=== PATIENT | male | born 1955 ===

== ENCOUNTER 2016-10-15 20:16 | Emergency (ER) | payer MEDICAID, OTHER ==
[2016-10-15 20:26] VITALS: PULSE 81; RESP 16; TEMP 97.9; O2SAT 100
[2016-10-15 21:32] LABS: BASO # 0.1 K/uL (0.0-0.2); BASO % 0.7 % (0.0-2.0); EOS # 0.2 K/uL (0.0-0.7); EOS % 2.1 % (0.0-4.0); HEMATOCRIT 42.6 % (35.0-51.0); LYMPH # 2.8 K/uL (1.0-4.3); LYMPH % 27.8 % (20.0-40.0); MEAN CELL VOLUME 93.8 fl (80.0-94.0); MEAN CORPUSCULAR HEMOGLOBIN 32.5 pg (27.0-31.0); MEAN CORPUSCULAR HGB CONC 34.6 g/dL (33.0-37.0); MEAN PLATELET VOLUME 8.9 fl (7.2-11.7); MONO # 0.8 K/uL (0.0-0.8); NEUT # 6.2 K/uL (1.8-7.0); NEUT % 61.4 % (50.0-75.0); NRBC % 0.1 % (0.0-0.0); RED CELL DISTRIBUTION WIDTH 12.4 % (11.5-14.5)
[2016-10-15 21:50] LABS: ALB/GLOB RATIO 1.4 (1.0-2.1); ALKALINE PHOSPHATASE 71 U/L (38-126); ALT/SGPT 30 U/L (21-72); AST/SGOT 24 U/L (17-59); BILIRUBIN,TOTAL 0.6 mg/dl (0.2-1.3); BLOOD UREA NITROGEN 15 mg/dl (9-20); CALCIUM 9.5 mg/dL (8.4-10.2); CARBON DIOXIDE 26 mmol/L (22-30); CHLORIDE 98 mmol/L (98-107); GFR AFRICAN-AMERICAN > 60; GLUCOSE,RANDOM 192 mg/dL (75-110); POTASSIUM 3.8 MMOL/L (3.6-5.0); SODIUM 138 mmol/l (132-148); TOTAL PROTEIN 7.7 G/DL (6.3-8.2)
[2016-10-15] MEDS ORDERED: Sodium Chloride 0.9% 1,000 ML IV STA (22:07)
[2016-10-15 22:16] LABS: RBC URINE 2 /hpf (0-3); WBC URINE 2 /hpf (0-5)
[2016-10-15 22:34] LABS: URINE COLOR YELLOW (YELLOW)
[2016-10-15 22:35] LABS: URINE BILIRUBIN NEGATIVE (NEGATIVE); URINE BLOOD NEGATIVE (NEGATIVE); URINE GLUCOSE (UA) NEGATIVE (Normal); URINE KETONE NEGATIVE (NEGATIVE); URINE LEUKOCYTE ESTERASE TRACE Leu/uL (Negative); URINE PROTEIN NEGATIVE (NEGATIVE); URINE UROBILINOGEN 0.2 mg/dL (0.2-1.0)
--- NOTE | 2016-10-15 22:47 | ED PDOC ---
HPI: General Adult Time Seen by Provider: 10/15/16 20:45 Chief Complaint (Nursing): Weakness/Neurological Deficit Chief Complaint (Provider): weakness Additional Complaint(s): 61yo M inED for eval of generalized weakness x 2 days states he is concerned about his BP and BS states that he is hasn['t been taking the normal Rx dosage of medication as Rx by [facility] primary in [place]. 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 negative for BARON, dizziness, fever, cough, SOB or CP/. Past Medical History Reviewed: Historical Data, Nursing Documentation, Vital Signs Vital Signs: Last Vital Signs Temp 97.9 F 10/15/16 20:23 Pulse 81 10/15/16 20:23 Resp 16 10/15/16 20:23 BP 176/88 H 10/15/16 20:23 Pulse Ox 100 10/15/16 20:23 - Medical History PMH: HTN - Family History Family History: States: No Known Family Hx - Home Medications Home Medications: Ambulatory Orders Medication Instructions Recorded Hydrochlorothiazide [Microzide] 12.5 mg PO DAILY 10/15/16 Losartan/Hydrochlorothiazide 1 tab PO DAILY 10/15/16 [Losartan-Hctz 50-12.5 mg Tab] Simvastatin [Simvastatin] 20 mg PO DAILY 10/15/16 metFORMIN [glucOPHAGE] 500 mg PO BID 10/15/16 - Allergies Allergies/Adverse Reactions: Allergies Allergy/AdvReac Type Severity Reaction Status Date / Time No Known Allergies Allergy Verified 10/15/16 20:22 Review of Systems ROS Statement: Except As Marked, All Systems Reviewed And Found Negative Constitutional: Positive for: Malaise Eyes: Negative for: Vision Change Physical Exam - Reviewed Nursing Documentation Reviewed: Yes Vital Signs Reviewed: Yes - Physical Exam Appears: Positive for: Well, Non-toxic, No Acute Distress Head Exam: Positive for: ATRAUMATIC, NORMAL INSPECTION, NORMOCEPHALIC Skin: Positive for: Normal Color, Warm, DRY Eye Exam: Positive for: EOMI, Normal appearance, PERRL Cardiovascular/Chest: Positive for: Regular Rate, Rhythm Respiratory: Positive for: CNT, Normal Breath Sounds Neurologic/Psych: Positive for: Alert, Oriented - Laboratory Results Result Diagrams: 10/15/16 21:29 10/15/16 21:29 - ECG O2 Sat by Pulse Oximetry: 100 - Progress ED Course And Treament: pt with unremarkable labs and FS feels well. opt to no have fluids IV at this time. Medical Decision Making Medical Decision Making: pt will be d/c advised to have pmd f/u and apply for insurance directed to [facility]. Disposition - Clinical Impression Clinical Impression: General medical exam - Patient ED Disposition Is Patient to be Admitted: No Counseled Patient/Family Regarding: Studies Performed, Diagnosis, Need For Followup - Disposition Referrals: [facility] [Outside] [facility] [Outside] Disposition: Routine/Home Disposition Time: 22:52 Condition: STABLE Instructions: Hypertension (ED)
[2016-10-15 23:12] VITALS: BP 151/94
== END 2016-10-15 23:12 | disposition home or self-care (01) ==
LOC: H.ER 20:16
DX: Z00.00 Encounter for general adult medical examination without abnormal findings (principal)